=== PATIENT | female | born 1970 | race Caucasian/White ===

== ENCOUNTER 2016-09-28 13:24 | Emergency (ER) | payer MEDICAID ==
[2016-09-28 13:36] VITALS: RESP 18
[2016-09-28] MEDS ORDERED: NS 1,000 ML IV ONE (13:51)
[2016-09-28] MEDS ORDERED: ONDANSETRON 4 MG/2 ML VIAL IVP ONE (13:57)
--- NOTE | 2016-09-28 13:57 | EDPHY ---
H & P Stated Complaint: dx uti/at [facility] 09/19 not better l flank pain Source: Patient - Personal History LMP (Females 10-55): Over 28 Days Ago Current Tetanus/Diphtheria Vaccine: No - Medical/Surgical History Hx Asthma: No Hx Chronic Respiratory Disease: No Hx Diabetes: No Hx Cardiac Disease: No Hx Renal Disease: No Hx Cirrhosis: No Hx Alcoholism: No Hx HIV/AIDS: No Hx Splenectomy or Spleen Trauma: No Other PMH: denies - Social History Smoking Status: Never smoked HPI/ROS: CHIEF COMPLAINT: Abdominal pain, flank pain, recent diagnosis of pyelonephritis HISTORY OF PRESENT ILLNESS: patient complains of nearly 2 weeks history of urinary complaints. She says that time of onset she feels she has UTI. She was seen at [facility] on September 19 and diagnosed with the urinary tract infection. She did not know the formal diagnosis, but chart review discovers that was diagnosed with pyelonephritis. She is discharged home on unknown antibiotic. She took its entire course without any improvement. She has actually continued to feel worse each day. She now has severe pain in the left flank and abdomen. She has been sweating and nauseated. Unable to keep anything down by mouth. Pain is primarily in the left flank and radiates down into the lower abdomen. Significantly worse with palpation and movement. No bloody emesis. No bloody stools. No trauma. No chest pain or shortness of breath. No cough or guarding skin changes. No other associated complaints or modifying factors. PREVIOUS ABDOMINAL SURGERIES/DIAGNOSES: Tubal ligation, recent diagnosis of left-sided pyelonephritis on September 19 NPO: last night REVIEW OF SYSTEMS: Ten systems reviewed and are negative unless otherwise noted in the HPI EXAMINATION: General Appearance: Alert, no distress. Crying but consolable Head: normocephalic, atraumatic Eyes: Pupils equal and round, no conjunctival pallor or injection ENT, Mouth: Mucous membranes moist. Uvula midline. No erythema or edema. Neck: Normal inspection, supple, non-tender Respiratory: Lungs are clear to auscultation . No wheezing, rhonchi or crackles. Cardiovascular: Regular rate and rhythm . Pulses intact distally. Gastrointestinal: Abdomen is soft . Tender to palpation on the left upper left lower quadrant. Guarding of those regions. There is significant tenderness to palpation of the left CVA. No tenderness of the right CVA. No distention or rigidity. Neurological: A&O, nonfocal, Strength is 5/5 in all limbs. Skin: Warm and dry, no rash Extremities: Nontender, no pedal edema Psychiatric: Mood and affect normal DIFFERENTIAL DIAGNOSES: Including but not limited to Pyelonephritis, UTI, renal colic, ureterolithiasis, enteritis, diverticulitis, colitis MDM: 2:05 p.m. recent diagnosis of pyelonephritis with now severe left flank pain. On examination she is more consistent with pyelonephritis than the others in the differential. She does however have guarding and tenderness on the left side of the abdomen. I have ordered a CT of the abdomen pelvis to the abdominal examination. She is afebrile. She does not have any abnormal vital signs at triage. She is in no acute distress. I have also ordered IV fluid, IV pain medication, IV Zofran. 3:[address] Schultz with the findings of the CT abdomen and pelvis. No evidence of pyelonephritis. There is significant stool. There is some mild thickening of the fundus of the stomach. Other findings as noted in the report. 3:57 p.m. I have re-evaluated the patient. I discussed the CT findings with the patient. She has not been vomiting. She is hemodynamically stable in no acute distress. We discussed discharge home with instructions for an enema and GoLYTELY. She is to take it as prescribed and no more. She is to return to ER for worsening pain today or tomorrow if she has no improvement in her pain. Patient and her friend at bedside are comfortable with this plan. She is discharged home in stable conditions and I have answered all of her questions. I informed her that I would like her to return to the ER tomorrow should she have no improvement number pain even if she does not feel worse. She is comfortable with this plan and discharged home in stable condition. ED Precautions: Worsening pain. Fever. Bloody stools. Bloody emesis. Constipation or diarrhea. SUPERVISION: This patient was independently evaluated without the aide of supervising physician. Case discussed with Dr. Solo (Sudeep Ma) Constitutional: Initial Vital Signs Temperature (C) 36.5 C 09/28/16 13:33 Heart Rate 76 09/28/16 13:33 Respiratory Rate 18 09/28/16 13:33 Blood Pressure 119/75 03/10/17 13:33 O2 Sat (%) 99 09/28/16 13:33 O2 Delivery Mode Room Air O2 (L/minute) 2 Allergies/Adverse Reactions: No Known Allergies Allergy (Unverified 09/28/16 13:27) Home Medications: Medication Instructions Recorded Na Phos,M-B/Na Phos,Di-Ba [Fleet 133 ml RC ONCE #1 enema 09/28/16 Enema] Peg 3350/Na Sulf,Bicarb,Cl/KCl 8 oz PO AD PRN #1 btl 09/28/16 [Golytely (RX)] Protonix 09/28/16 Vicodin 5-300 mg Tablet 09/28/16 Medical Decision Making ED Course/Re-evaluation: I did not see this patient while she was in the emergency department. However her care was discussed with the PA while the patient was in the department. I agree with treatment plan and management (Tunde Solo) - Data Points Laboratory Results: Laboratory Results 09/28/16 14:00 09/28/16 14:00 09/28/16 09/28/16 09/28/16 Unknown 14:00 14:00 WBC RBC Hgb Hct MCV MCH MCHC RDW Plt Count MPV Neut % (Auto) Lymph % (Auto) [place] % (Auto) Eos % (Auto) Baso % (Auto) Nucleat RBC Rel Count Absolute Neuts (auto) Absolute Lymphs (auto) Absolute Monos (auto) Absolute Eos (auto) Absolute Basos (auto) Absolute Nucleated RBC Immature Gran % Immature Gran # PT INR APTT Sodium 140 mEq/L mEq/L (134-144) Potassium 3.8 mEq/L mEq/L (3.5-5.2) Chloride 103 mEq/L mEq/L (97-110) Carbon Dioxide 23 mEq/l mEq/l (22-31) Anion Gap 14 mEq/L mEq/L (8-16) BUN 8 mg/dL mg/dL (7-23) Creatinine 0.8 mg/dL mg/dL (0.6-1.0) Estimated GFR > 60 Glucose 91 mg/dL mg/dL (70-100) Calcium 11.0 mg/dL H mg/dL (8.5-10.4) Phosphorus 3.4 mg/dL mg/dL (2.5-4.5) Total Bilirubin 1.1 mg/dL mg/dL (0.1-1.4) Conjugated Bilirubin 0.4 mg/dL mg/dL (0.0-0.5) Unconjugated Bilirubin 0.7 mg/dL mg/dL (0.0-1.1) AST 26 IU/L IU/L (14-46) ALT 28 IU/L IU/L (9-52) Alkaline Phosphatase 84 IU/L IU/L (38-126) Total Protein 8.5 g/dL H g/dL (6.3-8.2) Albumin 5.2 g/dL H g/dL (3.5-5.0) Lipase 64.0 IU/L IU/L (23-300) Beta HCG, Qual NEGATIVE Urine Color YELLOW Urine Appearance CLEAR Urine pH 8.0 H (5.0-7.5) Ur Specific [place] 1.012 (1.002-1.030) Urine Protein NEGATIVE (NEGATIVE) Urine Ketones 1+ H (NEGATIVE) Urine Blood NEGATIVE (NEGATIVE) Urine Nitrate NEGATIVE (NEGATIVE) Urine Bilirubin NEGATIVE (NEGATIVE) Urine Urobilinogen NEGATIVE EU EU (0.2-1.0) Ur Leukocyte Esterase NEGATIVE (NEGATIVE) Ur Culture Indicated? NOT INDICATED (NI) Urine Glucose NEGATIVE (NEGATIVE) 09/28/16 09/28/16 14:00 14:00 WBC 10.20 10^3/uL H 10^3/uL (3.80-9.50) RBC 5.14 10^6/uL 10^6/uL (4.18-5.33) Hgb 15.6 g/dL g/dL (12.6-16.3) Hct 45.4 % % (38.0-47.0) MCV 88.3 fL fL (81.5-99.8) MCH 30.4 pg pg (27.9-34.1) MCHC 34.4 g/dL g/dL (32.4-36.7) RDW 12.2 % % (11.5-15.2) Plt Count 368 10^3/uL 10^3/uL (150-400) MPV 9.5 fL fL (8.7-11.7) Neut % (Auto) 54.0 % % (39.3-74.2) Lymph % (Auto) 39.2 % % (15.0-45.0) [place] % (Auto) 5.0 % % (4.5-13.0) Eos % (Auto) 1.1 % % (0.6-7.6) Baso % (Auto) 0.4 % % (0.3-1.7) Nucleat RBC Rel Count 0.0 % % (0.0-0.2) Absolute Neuts (auto) 5.51 10^3/uL 10^3/uL (1.70-6.50) Absolute Lymphs (auto) 4.00 10^3/uL H 10^3/uL (1.00-3.00) Absolute Monos (auto) 0.51 10^3/uL 10^3/uL (0.30-0.80) Absolute Eos (auto) 0.11 10^3/uL 10^3/uL (0.03-0.40) Absolute Basos (auto) 0.04 10^3/uL 10^3/uL (0.02-0.10) Absolute Nucleated RBC 0.00 10^3/uL 10^3/uL (0-0.01) Immature Gran % 0.3 % % (0.0-1.1) Immature Gran # 0.03 10^3/uL 10^3/uL (0.00-0.10) PT 12.2 SEC SEC (12.0-15.0) INR 0.91 (0.83-1.16) APTT 28.7 SEC SEC (23.0-38.0) Sodium Potassium Chloride Carbon Dioxide Anion Gap BUN Creatinine Estimated GFR Glucose Calcium Phosphorus Total Bilirubin Conjugated Bilirubin Unconjugated Bilirubin AST ALT Alkaline Phosphatase Total Protein Albumin Lipase Beta HCG, Qual Urine Color Urine Appearance Urine pH Ur Specific [place] Urine Protein Urine Ketones Urine Blood Urine Nitrate Urine Bilirubin Urine Urobilinogen Ur Leukocyte Esterase Ur Culture Indicated? Urine Glucose Medications Given: Discontinued Medications Sodium Chloride (Ns) 1,000 mls @ 0 mls/hr IV ONCE ONE PRN Reason: Wide Open Stop: 09/28/16 13:52 Last Admin: 09/28/16 14:20 Dose: 1,000 mls Morphine Sulfate (Morphine) 6 mg IVP EDNOW ONE Stop: 09/28/16 13:58 Last Admin: 09/28/16 14:20 Dose: 6 mg Ondansetron HCl (Zofran) 4 mg IVP EDNOW ONE Stop: 09/28/16 13:58 Last Admin: 09/28/16 14:21 Dose: 4 mg Departure - Departure Disposition: Home, Routine, Self-Care Clinical Impression: Abdominal pain, acute, Constipation due to opioid therapy Condition: Good Instructions: Polyethylene Glycol 3350/Electrolytes (By mouth), Constipation ( ED), High Fiber Diet (ED), Fleet Enema (ED) Additional Instructions: prescriptions as discussed. Return to the ER for any worsening pain today. Return to the ER for any vomiting today. Return to the ER tomorrow if no improvement of your symptoms for re-evaluation Referrals: Keke Conklin MD [Medical Doctor] - As per Instructions Prescriptions: Na Phos,M-B/Na Phos,Di-Ba [Fleet Enema] 133 ml RC ONCE #1 enema Peg 3350/Na Sulf,Bicarb,Cl/KCl [Golytely (RX)] 8 oz PO AD PRN #1 btl PRN Reason: Constipation
[2016-09-28 14:16] LABS: % IMMATURE GRANULYOCYTES 0.3 % (0.0-1.1); ABSOLUTE IMMATURE GRANULOCYTES 0.03 10^3/uL (0.00-0.10); ADD DIFF? NO; ADD MORPH? NO; ADD SCAN? NO; ATYPICAL LYMPHOCYTE FLAG 10 (0-99); FRAGMENT RBC FLAG 0 (0-99); HEMATOCRIT 45.4 % (38.0-47.0); HEMOGLOBIN 15.6 g/dL (12.6-16.3); LEFT SHIFT FLG 0 (0-99); LIPEMIA HEMOLYSIS FLAG 90 (0-99); MEAN CELL HEMOGLOBIN 30.4 pg (27.9-34.1); MEAN CELL HEMOGLOBIN CONCENTR. 34.4 g/dL (32.4-36.7); MEAN CELL VOLUME 88.3 fL (81.5-99.8); MEAN PLATELET VOLUME 9.5 fL (8.7-11.7); PLATELET CLUMPS FLAG 0 (0-99); PLATELET COUNT 368 10^3/uL (150-400); RED BLOOD CELL COUNT 5.14 10^6/uL (4.18-5.33); RED CELL DISTRIBUTION WIDTH 12.2 % (11.5-15.2)
[2016-09-28 14:22] LABS: COLOR YELLOW; LEUKOCYTE ESTERASE,URINE NEGATIVE (NEGATIVE); NITRITE,URINE NEGATIVE (NEGATIVE)
[2016-09-28 14:23] LABS: INR 0.91 (0.83-1.16); PROTIME(PATIENT) 12.2 SEC (12.0-15.0)
[2016-09-28 14:25] LABS: APTT 28.7 SEC (23.0-38.0)
[2016-09-28 14:45] LABS: ALANINE AMINOTRANSFERASE 28 IU/L (9-52); ALBUMIN 5.2 g/dL (3.5-5.0); ALKALINE PHOSPHATASE 84 IU/L (38-126); ANION GAP 14 mEq/L (8-16); ASPARTATE AMINOTRANSFERASE 26 IU/L (14-46); BILIRUBIN,TOTAL 1.1 mg/dL (0.1-1.4); BILIRUBIN-CONJUGATED 0.4 mg/dL (0.0-0.5); BILIRUBIN-UNCONJUGATED 0.7 mg/dL (0.0-1.1); CARBON DIOXIDE 23 mEq/l (22-31); CHLORIDE 103 mEq/L (97-110); CREATININE 0.8 mg/dL (0.6-1.0); GLOMERULAR FILTRATION RATE > 60; GLUCOSE 91 mg/dL (70-100); POTASSIUM 3.8 mEq/L (3.5-5.2); SODIUM 140 mEq/L (134-144); TOTAL PROTEIN 8.5 g/dL (6.3-8.2)
[2016-09-28] MEDS ORDERED: IOPAMIDOL (ISOVUE-300) 100 ML BTL IV ONE (14:50)
[2016-09-28 16:21] VITALS: BP 106/64; PULSE 72; TEMP 98.1; O2SAT 99
== END 2016-09-28 16:21 | disposition home or self-care (01) ==
DX: K59.00 Constipation, unspecified (principal); T40.2X5A Adverse effect of other opioids, initial encounter; Z98.51 Tubal ligation status
CPT/HCPCS: J2405; Q9967